=== PATIENT | male | born 1965 | race Caucasian/White ===

== ENCOUNTER 2017-08-07 08:21 | Day surgery (SDC) | payer BC ==
[~2017-08-07 08:21] MED LIST: HYDR-3129 PO; METO25CR PO; ST JTAB PO
[2017-08-07] MEDS ORDERED: ceFAZolin 2 GM PREMIX 50 ML IV SCH (09:00)
[2017-08-07] MEDS ORDERED: CHLORHEXIDINE GLUCONATE 2 % 1 PACK (2 CLOTHS) TOPICAL SCH (09:00)
[2017-08-07] MEDS ORDERED: POVIDONE IODINE 5% (ANTISEPSIS KIT) 4 APPLICATIONS EACH NARE SCH (09:00)
[2017-08-07] MEDS ORDERED: NS 1000 ML IV SCH (09:00)
[2017-08-07] MEDS ORDERED: MUPIROCIN 2% OINT 1 APPLIC/GM SYR NASAL SCH (09:00)
[2017-08-07] MEDS ORDERED: NO Heparin, Lovenox, Coumadin at least 12 hours prior to procedure. PRN (09:00)
[2017-08-07 09:11] VITALS: BP 143/91; PULSE 65; RESP 16; TEMP 98; O2SAT 97
[2017-08-07] MEDS ORDERED: ASPI81TA23 PO (09:17)
[2017-08-07] MEDS ORDERED: METO1TAB42 PO (09:17)
[2017-08-07] MEDS ORDERED: MIDAZOLAM HCL 5 MG/ML VIAL (1 ML) ONE (09:46)
--- NOTE | 2017-08-07 11:57 | MB ---
cc: Ty Lauren MD, Andrew C MD DATE: 08/07/2017 HISTORY OF PRESENT ILLNESS: Mr. Arellano is a 51-year-old gentleman with a history of tachyarrhythmia and previous loop recorder inserted, followed by Dr. Mattson and was referred for evaluation for possible loop removal. The chart was reviewed. The patient was evaluated. ALLERGIES: NONE. SOCIAL HISTORY: The patient denies smoking and drinking. FAMILY HISTORY: Noncontributory to his current medical condition. MEDICATIONS: He is on metoprolol 25 mg a day and aspirin 81 mg a day. REVIEW OF SYSTEMS: The patient refers no chest pain, no chest discomfort. No fever. PHYSICAL EXAMINATION: GENERAL: Alert, fully oriented. VITAL SIGNS: His blood pressure 142/91, pulse 65, respiratory rate 18. LUNGS: Ventilated. CARDIOVASCULAR: S1, S2. Regular. No gallop. ABDOMEN: Soft, no mass, no bruit. EXTREMITIES: No edema. ELECTROCARDIOGRAM: Sinus rhythm. No acute ST and T-wave changes. ASSESSMENT AND RECOMMENDATIONS: Mr. Arellano' loop recorder is at end of life. This gentleman wants the loop to be removed. The risks, the nature and the benefits of the procedure are clearly stated to him. Risks include pneumothorax, infection, stroke and even . The patient understood and agreed to proceed. The procedure will be performed and the patient will be discharged home later today. Ty Lauren MD HS/DL , 11:38 AM , 11:56 AM
--- NOTE | 2017-08-07 12:08 | MP ---
cc: Ty Lauren MD DATE OF OPERATION: 08/07/2017 PROCEDURE PERFORMED: Loop recorder removal and conscious sedation. INDICATIONS FOR PROCEDURE: Mr. Arellano is a 51-year-old gentleman with previous loop recorder inserted in 2013. The generator is basically end of life. He had a history of supraventricular tachyarrhythmia. He was referred for loop removal. The risks, the nature and the benefits of the procedure were clearly stated to him. The risks include pneumothorax, infection and even . He understood and agreed to proceed. PROCEDURE: After written informed consent was obtained, the patient was brought to the [facility] Unit where he was prepped and draped in the usual sterile fashion. Conscious sedation was initiated using intravenous Versed and intravenous fentanyl. Once sedation was verified, the left infraclavicular area over the loop was anesthetized with 2% Xylocaine. Using a #11 blade scalpel, a less than 1 cm incision was made. Dissection was taken down using blunt dissection. Once exposed, the loop was removed. The pocket was irrigated. Subsequently, the border was reapproximated using #4-0 Ethibond suture. No incident reported. The patient tolerated the procedure. CONCLUSION: Successful loop recorder removal. COMMENT AND RECOMMENDATIONS: The patient is going to be observed and discharged later today. MD YADY Sullivan/SB , 11:36 AM , 12:07 PM
--- NOTE | 2017-08-07 14:24 | EKG ---
Date Performed: 08/07/2017 Time Performed: 09:28:40 PTAGE: 51 years EKG: Sinus rhythm . Normal ECG Since the PREVIOUS TRACING , no significant change noted PREVIOUS TRACIN07/12/2013 06.54 DOCTOR: Florencia Wilks Interpretating Date/Time 08/07/2017 14:19:05
== END 2017-08-07 12:45 | disposition home or self-care (01) ==
LOC: HDOC 08:21 → HDIC 08:21 → HDOC 12:45
PROVIDERS: ATTEND Internal Medicine Interventional Cardiology
DX: I47.1 Supraventricular tachycardia (principal); F17.200 Nicotine dependence, unspecified, uncomplicated; Z79.82 Long term (current) use of aspirin
CPT/HCPCS: 33284; 93005; 99152; J0690; J2250; J3010